=== PATIENT | female | born 2005 | race Caucasian/White ===

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

== ENCOUNTER 2025-10-09 19:48 | Emergency (ER) | payer BC, MEDICAID ==
[~2025-10-09] VITALS: Ht 162.6 cm; Wt 62.9 kg
[~2025-10-09 19:48] MED LIST changes: +NAP500T PO; +PRED20TA2 PO
[2025-10-09 19:50] VITALS: TEMP 97.9
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
--- NOTE | 2025-10-09 20:55 | DVH ---
CLINICAL INDICATION: dog bite TECHNIQUE: XYXY L HAND 3V XRAY COMPARISON: None FINDINGS/IMPRESSION: : There is no evidence of acute fracture or dislocation. Soft tissue swelling with a few locules of gas along the dorsum of the hand. No radiopaque foreign body
[2025-10-09] MEDS ORDERED: CIPR-173 PO (21:00)
[2025-10-09] MEDS ORDERED: CLIN1CAP70 PO (21:00)
[2025-10-09] MEDS: CLINDAMYCIN HCL 150 MG CAP PO ONE (21:56)
[2025-10-09] MEDS: HYDROcodone-ACET 5/325MG TAB PO ONE (21:57)
[2025-10-09] MEDS: CIPROFLOXACIN HCL 500 MG TAB PO ONE (21:57)
[2025-10-09] MEDS: TETANUS-DIPTH-ACEL PERTUSSIS 0.5ML SYR Tdap IM ONE (21:58)
[2025-10-09 22:15] VITALS: BP 119/80; PULSE 56; RESP 16; O2SAT 97
== END 2025-10-09 22:23 | disposition home or self-care (01) ==
LOC: ER 19:48
DX: S61.452A Open bite of left hand, initial encounter (principal); W54.0XXA Bitten by dog, initial encounter; Y93.89 Activity, other specified; Y92.89 Other specified places as the place of occurrence of the external cause; Y99.8 Other external cause status
CPT/HCPCS: 73130; 90471; 90715